=== PATIENT | female | born 2000 | race Two or more races ===

== ENCOUNTER 2018-09-04 10:33 | Observation (INO) | payer MEDICAID, OTHER ==
[2018-09-04] MEDS ORDERED: PREN-96 PO (11:13)
== END 2018-09-04 11:50 | disposition home or self-care (01) | DRG 563 ==
LOC: LDRP 10:33
PROVIDERS: ADMIT Specialist; ATTEND Specialist
DX: O60.03 Preterm labor without delivery, third trimester (principal); O48.0 Post-term pregnancy; Z3A.40 40 weeks gestation of pregnancy
CPT/HCPCS: 59025; 76818; 81002; G0378

== ENCOUNTER 2018-09-06 15:04 | Observation (INO) | payer MEDICAID ==
[~2018-09-06] VITALS: Ht 165.1 cm; Wt 83.9 kg
[~2018-09-06 15:04] MED LIST: PREN-96 PO
== END 2018-09-06 16:30 | disposition home or self-care (01) | DRG 566 ==
LOC: LDRP 15:04
PROVIDERS: ADMIT Obstetrics & Gynecology; ATTEND Obstetrics & Gynecology
DX: O62.9 Abnormality of forces of labor, unspecified (principal); O48.0 Post-term pregnancy; Z3A.40 40 weeks gestation of pregnancy
CPT/HCPCS: 59025; 81002; G0378

== ENCOUNTER 2018-09-08 10:20 | Observation (INO) | payer MEDICAID | END 2018-09-08 12:05 | disposition home or self-care (01) | DRG 566 | LOC: LDRP 10:20 | PROVIDERS: ADMIT Obstetrics & Gynecology; ATTEND Obstetrics & Gynecology | DX: O48.0 Post-term pregnancy (principal); Z3A.40 40 weeks gestation of pregnancy | CPT/HCPCS: 76818; G0378; 59025; 81002 ==

== ENCOUNTER 2018-09-10 10:30 | Observation (INO) | payer MEDICAID ==
[~2018-09-10] VITALS: Ht 165.1 cm; Wt 83.9 kg
== END 2018-09-10 11:45 | disposition home or self-care (01) | DRG 566 ==
LOC: LDRP 10:30
PROVIDERS: ADMIT Specialist; ATTEND Specialist
DX: O48.0 Post-term pregnancy (principal); Z3A.40 40 weeks gestation of pregnancy
CPT/HCPCS: 59025; 76818; 81002; G0378

== ENCOUNTER 2018-09-11 20:24 | Inpatient (IN) | payer MEDICAID | END 2018-09-13 16:15 | disposition home or self-care (01) | LOC: LDRP 20:24 | PROC: 10E0XZZ Delivery of Products of Conception, External Approach (ICD-10-PCS; principal; ~2018-09-11) | PROC: 0KQM0ZZ Repair Perineum Muscle, Open Approach (ICD-10-PCS; ~2018-09-11) | DX: O48.0 Post-term pregnancy (principal); Z37.0 Single live birth ==

== ENCOUNTER 2018-09-19 13:41 | Emergency (ER) | payer MEDICAID ==
[~2018-09-19] VITALS: Ht 165.1 cm; Wt 76.7 kg
[2018-09-19 13:49] VITALS: BP 131/91
[2018-09-19 14:22] LABS: Basophils # (auto) 0 uL; Basophils % (auto) 0.3 % (0.0-2.0); Eosinophils # (auto) 0.2 uL; Eosinophils % (auto) 1.8 % (0.0-7.0); Hematocrit 38.3 % (36.0-46.0); Hemoglobin 12.7 g/dL (12.2-16.2); Lymphocytes # (auto) 2.1 uL; Lymphocytes % (auto) 16.1 % (10.0-50.0); Mean Corpuscular Hemoglobin 28.5 pg (28.0-32.0); Mean Corpuscular Hgb Conc. 33.2 g/dL (32.0-36.0); Mean Corpuscular Volume 85.9 fL (80.0-100.0); Monocytes % (auto) 7.4 % (0.0-12.0); Neutrophils # (auto) 9.6 uL; Neutrophils % (auto) 74.4 % (37.0-80.0); Platelet Count (auto) 344 10^3/uL (140-450); Red Blood Cells 4.45 10^6/uL (4.0-5.20); Red Cell Distribution Width 13.8 % (11.8-14.3); White Blood Cell 12.9 10^3/uL (4.4-10.8)
[2018-09-19 14:33] LABS: Urine Bacteria FEW /hpf (None Seen); Urine Blood 2+ /uL (Negative); Urine Mucus FEW (None Seen); Urine WBC 188 /hpf (0 - 5)
[2018-09-19 14:37] LABS: BUN/Creatinine Ratio 15.2; Calcium 8.5 mg/dL (8.5-10.1); Potassium 3.8 mmol/L (3.5-5.1)
[2018-09-19] MEDS ORDERED: cefTRIAXone SOD 1,000 MG VL IM ONE (15:00)
[2018-09-19] MEDS ORDERED: ACETAMINOPHEN 500 MG TAB PO ONE (15:00)
== END 2018-09-19 15:34 | disposition home or self-care (01) ==
LOC: ER 13:41
DX: O86.20 Urinary tract infection following delivery, unspecified (principal)
CPT/HCPCS: 36415; 80048; 81001; 85025; 96372; 99283; J0696